=== PATIENT | female | born 1990 | race Two or more races ===

== ENCOUNTER 2025-05-08 02:05 | Emergency (ER) | payer SELFPAY ==
[~2025-05-08] VITALS: Ht 165.1 cm; Wt 84.1 kg
[2025-05-08 02:15] VITALS: BP 146/97; PULSE 117; RESP 20; TEMP 99.1; O2SAT 96
--- NOTE | 2025-05-08 02:38 | ED.PDOC ---
SOB-HPI HPI Comments 35 y/o F, with a history of polysubstance abuse, is BIBA with c/c shortness of breath. Patient is a poor historian. She endorses onset of symptoms, this evening, after using methamphetamine, earlier, today. Denies any chest pain, cough, congestion, fever, chills, or further associated symptoms. Chief Complaint: Shortness of Breath Time Seen by MD: 02:20 Reviewed notes: Nurses Notes, Medications, Allergies Information Source: Patient Mode of Arrival: Ambulatory Severity: Moderate Timing: Hours Duration: Since onset Context: Spontaneous Onset Past Medical History PAST MEDICAL HISTORY: Denies Surgical History: Denies all surgeries FASHION STYLING INTERN History: No Pertinent FASHION STYLING INTERN History Family History Family History: Unknown Social History Smoker: Non-Smoker Alcohol: Denies ETOH Use Drugs: Denies Drug Use Lives In: Home All Other Systems: Reviewed and Negative ( Comprehensive review of systems are negative unless otherwise stated in HPI) Physical Exam General Appearance: No Apparent Distress HEENT: Normal ENT Inspection, Pharynx Normal, TMs Normal Neck: Full Range of Motion, Non-Tender, Normal, Normal Inspection Respiratory: Chest Non-Tender, Lungs Clear, No Accessory Muscle Use, No Respiratory Distress, Normal Breath Sounds Cardiovascular: No Edema, No JVD, No Murmur, No Gallop, Normal Peripheral Pulses, Regular Rate/Rhythm Breast Exam: Deferred Gastrointestinal: No Organomegaly, Non Tender, No Pulsatile Mass, Normal Bowel Sounds, Soft Genitalia: Deferred Pelvic: Deferred Rectal: Deferred Extremities: No calf tenderness, Normal capillary refill, Normal inspection, Normal range of motion, Non-tender, No pedal edema Musculoskeletal : Apperance: Normal Neurologic: Alert, block engraver II-XII nml as Tested, No Motor Deficits, Normal Affect, Normal Mood, No Sensory Deficits Cerebellar Function: Normal Reflexes: Normal Skin: Dry, Normal Color, Warm Lymphatic: No Adenopathy Was a procedure done? Was a procedure done?: No Differential Dx Differential Diagnosis: Anxiety, Asthma, Bronchitis, CHF, COPD, Myocardial infarction, Panic Attack, Pneumonia, Pulmonary Embolism, Respiratory Distress, URI, Other X-Ray, Labs, Meds, VS Vital Signs Date Time Temp Pulse Resp B/P (MAP) Pulse Ox O2 Delivery O2 Flow Rate FiO2 05/08/25 02:15 96 Room Air* 0 21 05/08/25 02:15 99.1 117 20 146/97 (113) 96 99.1 Time of 1ST Reevaluation: 02:50 Reevaluation 1ST: Unchanged Patient Education/Counseling: Diagnosis, Treatment, Need For Follow Up Family Education/Counseling: No Family Present SEPSIS Sepsis Screen Physician Orders Electrocardigram (05/08/25 02:24) Chest Xray 1 View (05/08/25 02:24) Vital Signs Date Time Temp Pulse Resp B/P (MAP) Pulse Ox O2 Delivery O2 Flow Rate FiO2 05/08/25 02:15 96 Room Air* 0 21 05/08/25 02:15 99.1 117 20 146/97 (113) 96 99.1 Departure 1 Departure Time of Disposition: 06:00 Impression: Primary Impression: Dyspnea Additional Impression: Methamphetamine abuse Disposition: 01 HOME / SELF CARE / HOMELESS Condition: Stable Discharged With: Self Critical Care Note Critical Care Time?: No Stability Stability form required: No Heart Score Heart Score: Heart Score Response (Comments) Value History Slightly Suspicious 0 EKG Normal 0 Age <45 0 Risk Factors 1 or 2 risk factors 1 Troponin Normal limit 0 Total 1 I personally scribed for FRANCI RECINOS MD ([email or web address]) on 05/08/25 at 02:38. Electronically submitted by Rishi Laguna [email or web address]). FRANCI RECINOS MD May 08, 2025 02:38
--- NOTE | 2025-05-08 03:10 | DVH ---
CHEST RADIOGRAPH Indication: SOB Technique: Single frontal view of the chest was obtained COMPARISON: None FINDINGS: Lines and Tubes: None Lungs: Clear Pleura: No effusion. No pneumothorax. Cardiomediastinal contours: Unremarkable Bones: Unremarkable IMPRESSION: 1. No acute disease.
== END 2025-05-08 03:47 | disposition home or self-care (01) ==
LOC: ER 02:05 → EDBD 02:05 → ER 03:47
DX: F15.10 Other stimulant abuse, uncomplicated (principal); R06.00 Dyspnea, unspecified
CPT/HCPCS: 71045

== ENCOUNTER 2025-06-18 22:36 | Emergency (ER) | payer MEDICAID, OTHER ==
[~2025-06-18] VITALS: Ht 152.4 cm; Wt 71.3 kg
[2025-06-18 22:37] VITALS: BP 153/92; PULSE 112; RESP 16; TEMP 98.9; O2SAT 100
[2025-06-18] MEDS ORDERED: ACETAMINOPHEN 325 MG TAB PO ONE (23:30)
[2025-06-18] MEDS ORDERED: HYOSCYAMINE SULF 0.125 MG ODT TAB PO ONE (23:30)
--- NOTE | 2025-06-18 23:33 | ED.PDOC ---
GI ASSESSMENT HPI Comments This is a 35-year-old female with no significant past medical history came to the hospital due to abdominal pain since morning. Per patient, today morning she took grupo, subsequently developed epigastric abdominal pain, constant, 10/10 in intensity, with no clear exacerbating or relieving factor. She also re ports of nausea. Currently, she reports pain 6/10 in intensity. She denies fever, chest pain, shortness of breath, vomiting, dysuria, or any recent bowel habit changes. Chief Complaint: Abdominal Pain Time Seen by MD: 22:51 Reviewed Notes: Nurses Notes Allergies: Coded Allergies: NO KNOWN ALLERGIES (Unverified , 05/08/25) Information Source: Patient Mode of Arrival: Ambulatory Past Medical History PAST MEDICAL HISTORY: Denies Surgical History: Denies all surgeries SOUND ENGINEER AUDIO CONTROL History: No Pertinent SOUND ENGINEER AUDIO CONTROL History Family History Family History: Unknown Social History Smoker: Non-Smoker Alcohol: Denies ETOH Use Drugs: Denies Drug Use Lives In: Home Physical Exam General Appearance: No Apparent Distress, Normal HEENT: Normal ENT Inspection, Pharynx Normal, TMs Normal Neck: Full Range of Motion, Non-Tender, Normal, Normal Inspection Respiratory: Chest Non-Tender, Lungs Clear, No Accessory Muscle Use, No Respiratory Distress, Normal Breath Sounds Cardiovascular: No Edema, No JVD, No Murmur, No Gallop, Normal Peripheral Pulses, Regular Rate/Rhythm Breast Exam: Deferred Gastrointestinal: No Organomegaly, Non Tender, No Pulsatile Mass, Normal Bowel Sounds, Soft Genitalia: Deferred Pelvic: Deferred Rectal: Deferred Extremities: No calf tenderness, Normal capillary refill, Normal inspection, Normal range of motion, Non-tender, No pedal edema Neurologic: Alert, outreach representative II-XII nml as Tested, No Motor Deficits, Normal Affect, Normal Mood, No Sensory Deficits Cerebellar Function: Normal Reflexes: Normal Skin: Dry, Normal Color, Warm Lymphatic: No Adenopathy Was a procedure done? Was a procedure done?: No GI differential Dx Differential Diagnosis: Gastritis/PUD, Gastroenteritis X-Ray, Labs, Meds, VS Vital Signs Date Time Temp Pulse Resp B/P (MAP) Pulse Ox O2 Delivery O2 Flow Rate FiO2 06/18/25 22:37 98.9 112 16 153/92 100 98.9 Time of 1ST Reevaluation: 01:28 Reevaluation 1ST: Improved Patient Education/Counseling: Diagnosis, Treatment, Prognosis, Need For Follow Up Family Education/Counseling: No Family Present Comments Patient came to the hospital due to abdominal pain and nausea. The patient was vitally stable. Patient on physical examination, abdomen soft and nontender. Patient was given IV fluid, Zofran and Protonix. Patient was also given hyoscinamide On subsequent checkup, patient was feeling better. Patient was discharged home. Follow up with the PCP. SEPSIS Sepsis Screen Date sepsis recognized/suspect: Jun 18, 2025 Time Sepsis recognized/suspect: 2236 Recent Procedure: No On Antibiotic Therapy: No Respiratory Rate >20: No Heart Rate >90: Yes Temp<36 C (96.8 F) or >38.3 C: No SBP <90 or MAP <65 mmHG: No New Acute Mental Status Change: No Is the patient on CPAP, BIPAP,: No Vital Signs Date Time Temp Pulse Resp B/P (MAP) Pulse Ox O2 Delivery O2 Flow Rate FiO2 06/18/25 22:37 98.9 112 16 153/92 100 98.9 Departure 1 Departure Time of Disposition: 02:00 Impression: Primary Impression: Gastritis Disposition: 01 HOME / SELF CARE / HOMELESS Condition: Good Critical Care Note Critical Care Time?: No Stability Stability form required: No Heart Score Heart Score: Heart Score Response (Comments) Value History N/A 0 EKG N/A 0 Age N/A 0 Risk Factors N/A 0 Troponin N/A 0 Total 0 JESSY MAN RESIMELDA Jun 18, 2025 23:33
[2025-06-19] MEDS: ONDANSETRON HCL 4 MG/2 ML VIAL IV ONE (01:50)
[2025-06-19] MEDS: PANTOPRAZOLE 40 MG/10 ML VIAL INJ IV ONE (01:51)
[2025-06-19] MEDS: SODIUM CHLORIDE 0.9% 1,000 ML IV ONE (01:51)
== END 2025-06-19 01:55 | disposition home or self-care (01) ==
LOC: ER 22:36
DX: K29.70 Gastritis, unspecified, without bleeding (principal); Z79.899 Other long term (current) drug therapy
CPT/HCPCS: 96360

== ENCOUNTER → 2025-07-31 | Emergency (ER) | payer MEDICAID ==
[~2025-07-31] VITALS: Ht 157.5 cm; Wt 73.6 kg
[2025-07-31 15:11] VITALS: BP 122/79; PULSE 86; RESP 16; TEMP 98.7; O2SAT 97
[2025-07-31 16:27] LABS: Hematocrit 42.6 % (36.0-46.0); Hemoglobin 14.6 g/dL (12.2-16.2); Mean Corpuscular Hemoglobin 33.4 pg (28.0-32.0); Mean Corpuscular Volume 97.5 fL (80.0-100.0); Nucleated Red Blood Cells % 0.1 %
[2025-07-31 16:33] LABS: Potassium 3.7 mmol/L (3.5-5.1); Sodium 141 mmol/L (136-145)
[2025-07-31 16:34] LABS: Anion Gap 8 (5-15); Calcium 9.3 mg/dL (8.7-10.4); Carbon Dioxide 23 mmol/L (20-31)
[2025-07-31 16:39] LABS: BUN/Creatinine Ratio 20.3 (10.0-20.0); Blood Urea Nitrogen 13 mg/dL (9-23); Chloride 110 mmol/L (98-107); Glucose 101 mg/dL (74-106)
== END | disposition left against medical advice (07) ==
LOC: ER 15:09
DX: R11.2 Nausea with vomiting, unspecified (principal); Z53.21 Procedure and treatment not carried out due to patient leaving prior to being seen by health care provider
CPT/HCPCS: 36415; 80048; 85025